=== PATIENT | female | born 1955 | race Caucasian/White ===

== ENCOUNTER 2021-01-12 06:03 | Day surgery (SDC) | payer MEDICARE ==
[~2021-01-12 06:03] MED LIST: Acetaminophen 325 MG Tab PO SCH; Lactated Ringers 1,000 ML IV SCH; Lidocaine 1% 4 ML ONE; Lidocaine 1%/Sod Bicarbonate in NS 8.4% 1 ML Syringe IDERM PRN; Midazolam 1 MG/ML 2 ML SDV ONE; Pregabalin 25 MG Cap PO SCH; Propofol 200 MG/20 ML SDV ONE; Sodium Chloride 0.9% 10 ML Syringe FLUSH PRN; fentaNYL 100 MCG/2 ML SDV ONE; oxyCODONE ER 10 MG TAB.ER PO SCH
[2021-01-12] MEDS ORDERED: ceFAZolin 1 GM Vial ONE (06:11)
[2021-01-12] MEDS ORDERED: Lactated Ringers 1,000 ML ONE (06:13)
--- NOTE | 2021-01-12 06:25 | PCM.PREANE ---
Preanesthetic Assessment - Anesthesia/Transfusion/Family Hx Anesthesia History: Prior Anesthesia Without Reaction (pt has had hoarseness from repeated intubation after open heart surgery) Family History of Anesthesia Reaction: No Transfusion History: Prior Transfusion Without Reaction - Review of Systems General: No Symptoms Pulmonary: Cough Cardiovascular: No Symptoms Gastrointestinal: Nausea (pt states due to sinus drainage) Neurological: No Symptoms Other: Reports: None - Physical Assessment NPO Status Date: 01/11/21 NPO Status Time: 21:30 ASA Class: 3 Mental Status: Alert & Oriented x3 Airway Class: Mallampati = 3 Dentition: Reports: Normal Dentition Thyro-Mental Finger Breadths: 3 Mouth Opening Finger Breadths: 3 ROM/Head Extension: Full Lungs: Clear to Auscultation, Normal Respiratory Effort Cardiovascular: Regular Rate, Regular Rhythm - Allergies Allergies/Adverse Reactions: Allergies Allergy/AdvReac Type Severity Reaction Status Date / Time heparin Allergy Cannot Verified 01/09/21 07:09 Remember Penicillins Allergy Cannot Verified 01/09/21 07:09 Remember Sulfa (Sulfonamide Allergy Cannot Verified 01/09/21 07:09 Antibiotics) Remember - Anesthesia Plan Beta Sharon: Metoprolol Med Last Dose Date: 01/12/21 Med Last Dose Time: 04:30 - Acknowledgements Anesthesia Type Planned: Spinal, Regional Block Pt an Appropriate Candidate for the Planned Anesthesia: Yes Alternatives and Risks of Anesthesia Discussed w Pt/Guardian: Yes Pt/Guardian Understands and Agrees with Anesthesia Plan: Yes PreAnesthesia Questionnaire HEENT History: Reports: Impaired Vision, Other (See Below) Other HEENT History: post nasal drip Cardiovascular History: Reports: Afib, Cardiomyopathy, Other (See Below) Other Cardiovascular History: left bundle branch block, mitral regurgitation Respiratory History: Reports: Other (See Below) Other Respiratory History: dypsnea on exertion, history of multiple intubations that resulted chronic cough and hoarseness Gastrointestinal History: Reports: None Genitourinary History: Reports: UTI, Recurrent, Other (See Below) (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, all due to allery to heparin and side effects) Other Genitourinary History: hematuria 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 Musculoskeletal History: Reports: Other (See Below) Other Musculoskeletal History: right arm pain, left hip pain, right carpal tunnel syndrome, cervical muscle pain, left patella frature Neurological History: Reports: Other (See Below) Other Neuro History: right arm paresthesia Psychiatric History: Reports: Depression, Other (See Below) Other Psychiatric History: sleep disturbances Endocrine/Metabolic History: Reports: None Hematologic History: Reports: None Immunologic History: Reports: None Oncologic (Cancer) History: Reports: None Dermatologic History: Reports: Cellulitis - Past Surgical History Head Surgeries/Procedures: Reports: None HEENT Surgical History: Reports: None Cardiovascular Surgical History: Reports: Other (See Below) Other Cardiovascular Surgeries/Procedures: myocardial myectomy Respiratory Surgical History: Reports: None GI Surgical History: Reports: None Female Surgical History: Reports: Hysterectomy Male Surgical History: Reports: None Endocrine Surgical History: Reports: None Neurological Surgical History: Reports: None Musculoskeletal Surgical History: Reports: Ganglion Cyst, Joint Replacement, Other (See Below) Other Musculoskeletal Surgeries/Procedures:: left total knee replacement, left knee replacement, right carpal tunnel release Oncologic Surgical History: Reports: None Dermatological Surgical History: Reports: None - SUBSTANCE USE Tobacco Use Status *Q: Never Tobacco User Days Per Week of Alcohol Use: 2 Number of Drinks Per Day: 2 Total Drinks Per Week: 4 Recreational Drug Use History: No - HOME MEDS Home Medications: Home Meds Apixaban [Eliquis] 5 mg PO BID 01/09/21 [History] Cholecalciferol (Vitamin D3) [Vitamin D3] 5,000 unit PO DAILY 01/09/21 [History] Escitalopram Oxalate [Lexapro] 20 mg PO DAILY 01/09/21 [History] Furosemide [Lasix] 20 mg PO DAILY 01/09/21 [History] Metoprolol Tartrate 25 mg PO BID 01/09/21 [History] Omeprazole Magnesium [Prilosec Otc] 20 mg PO DAILY 01/09/21 [History] - CURRENT (IN HOUSE) MEDS Current Meds: Current Medications Acetaminophen (Acetaminophen 325 Mg Tab) 975 mg PO ONETIME MARIA ESTHER Stop: 01/12/21 16:00 Morphine Sulfate 8 mg/Epinephrine HCl 0.3 mg/Cefuroxime Sodium 750 mg/Ketorolac Tromethamine 30 mg/Sodium Chloride 7.9 ml 0 mg .XX ASDIRECTED PRN PRN Reason: Pain Stop: 01/12/21 18:00 Lactated Ringer's (Ringers, Lactated) 1,000 mls @ 125 mls/hr IV ASDIRECTED MARIA ESTHER Stop: 01/12/21 23:00 Lidocaine/Sodium Bicarbonate (Lidocaine 1%/Sod Bicarbonate In Ns 8.4% 1 Ml Syringe) 0.25 ml IDERM ONETIME PRN PRN Reason: Prior to IV Start Stop: 01/12/21 18:00 Oxycodone HCl (Oxycodone Er 10 Mg Tab.Er) 10 mg PO ONETIME MARIA ESTHER Stop: 01/12/21 18:00 Pregabalin (Pregabalin 25 Mg Cap) 50 mg PO ONETIME MARIA ESTHER Stop: 01/12/21 16:00 Sodium Chloride (Sodium Chloride 0.9% 10 Ml Syringe) 10 ml FLUSH ASDIRECTED PRN PRN Reason: Keep Vein Open Stop: 01/12/21 18:00 Discontinued Medications Cefazolin Sodium (Cefazolin 1 Gm Vial) Confirm Administered Dose 2 gm .ROUTE .STK-MED ONE Stop: 01/12/21 06:12 Fentanyl (Fentanyl 100 Mcg/2 Ml Sdv) Confirm Administered Dose 100 mcg .ROUTE .STK-MED ONE Stop: 01/12/21 06:04 Lidocaine HCl (Xylocaine-Mpf 1%) Confirm Administered Dose 4 mls @ as directed .ROUTE .STK-MED ONE Stop: 01/12/21 06:04 Lactated Ringer's (Ringers, Lactated) Confirm Administered Dose 1,000 mls @ as directed .ROUTE .STK-MED ONE Stop: 01/12/21 06:14 Midazolam HCl (Midazolam 1 Mg/Ml 2 Ml Sdv) Confirm Administered Dose 2 mg .ROUTE .STK-MED ONE Stop: 01/12/21 06:04 Propofol (Propofol 200 Mg/20 Ml Sdv) Confirm Administered Dose 200 mg .ROUTE .STK-MED ONE Stop: 01/12/21 06:04
[2021-01-12] MEDS ORDERED: ePHEDrine 50 MG/ML SDV ONE (07:15)
[2021-01-12] MEDS ORDERED: Ondansetron 4 MG/2 ML SDV ONE (07:28)
[2021-01-12] MEDS ORDERED: Dexmedetomidine 200 MCG/2 ML SDV ONE (07:35)
[2021-01-12] MEDS ORDERED: Ropivacaine 0.5% 5 MG/ML 30 ML SDV ONE (07:35)
[2021-01-12] MEDS ORDERED: Dexamethasone 4 MG/ML 5 ML MDV ONE (07:38)
[2021-01-12] MEDS ORDERED: Ondansetron 4 MG/2 ML SDV IVPUSH PRN (07:38)
[2021-01-12] MEDS ORDERED: fentaNYL 100 MCG/2 ML SDV IVPUSH PRN (07:38)
[2021-01-12] MEDS ORDERED: Propofol 200 MG/20 ML SDV ONE (07:45)
[2021-01-12] MEDS: Morphine 8 MG, EPINEPHrine 0.3 MG, Cefuroxime 750 MG, Ketorolac 30 MG, Sodium Chloride ... PRN ×10 (07:46→08:13)
[2021-01-12] MEDS: Vancomycin 1 GM SDV ONE ×2 (07:46→08:20)
--- NOTE | 2021-01-12 08:47 | PCM.POSTAN ---
POST ANESTHESIA ASSESSMENT - MENTAL STATUS Mental Status: Alert, Oriented - VITAL SIGNS Vital Signs: Last Vital Signs Temp 36.1 C 01/12/21 06:39 Pulse 66 01/12/21 06:00 Resp 18 01/12/21 06:00 BP 155/82 H 01/12/21 06:00 Pulse Ox 97 01/12/21 06:00 - RESPIRATORY Respiratory Status: Respiratory Rate WNL, Airway Patent, O2 Saturation Stable - CARDIOVASCULAR CV Status: Pulse Rate WNL, Blood Pressure Stable - GASTROINTESTINAL GI Status: No Symptoms - PAIN Pain Score: 0 - POST OP HYDRATION Hydration Status: Adequate & Stable
--- NOTE | 2021-01-12 09:14 | PCM.PRNOTE ---
- Free Text/Narrative Note: Postoperative regional pain control requested by surgeon. Pre-op Dx: Rt knee osteoarthritis. Post-op Rx: Total Rt knee arthroplasty. Procedure: Rt Adductor canal block with U/S guidance Requesting physician: Dr. Yariel Chaudhry Risks and benefits discussed with the patient preoperatively including infection, bleeding, incomplete or failed block, possible nerve damage, local anesthetic toxicity. Permit signed. Patient after spinal anesthesia post surgery in PACU, stable , alert and awake. Time out performed. Right mid-thigh was prepped with Chloraprep x 1 and allowed to dry. Under aseptic technique, the right femoral artery and sartorius muscle were identified under ultrasound prior to needle insertion. 4" Stimuplex needle #22 G was inserted under US guidance. Under direct visualization of needle tip the injection of 0.5% Ropivacaine with 1:200k epinephrine, with 6 mg of Dexamethasone and 40 mcg of Dexmedetomidine, total of 30 mls in divided doses, maintaining negative aspiration was completed without problems. No local anesthetic toxicity was noted. Patient is awake, stable and tolerated the procedure well. Time: 08:49 - 09:02 Picture not available due to machine malfunction.
--- NOTE | 2021-01-12 09:59 | PCM48HPAN ---
Post Anesthesia Note - EVALUATION WITHIN 48HRS OF ANESTHETIC Vital Signs in Normal Range: Yes Patient Participated in Evaluation: Yes Respiratory Function Stable: Yes Airway Patent: Yes Cardiovascular Function Stable: Yes Hydration Status Stable: Yes Pain Control Satisfactory: Yes Nausea and Vomiting Control Satisfactory: Yes Mental Status Recovered: Yes Vital Signs: Last Vital Signs Temp 36.6 C 01/12/21 09:42 Pulse 67 01/12/21 09:42 Resp 18 01/12/21 09:42 BP 116/72 01/12/21 09:42 Pulse Ox 94 L 01/12/21 09:40
--- NOTE | 2021-01-12 12:43 | CR ---
Right knee: AP and crosstable lateral views of the right knee were obtained. Comparison: Prior CT right knee study of 12/26/20. Knee prosthesis is noted. Components are aligned. Soft tissue air is seen. No acute underlying bony abnormality is appreciated. Impression: 1. Satisfactory postop radiographic appearance of recently placed right knee prosthesis. Diagnostic code #2
--- NOTE | 2021-01-27 07:33 | PCM.OPNOTE ---
- General Post-Op/Procedure Note Date of Surgery/Procedure: 01/12/21 Operative Procedure(s): right total knee arthroplasty with jordan [employer] robot[employer] Pre Op Diagnosis: right knee osteoarthrosis Post-Op Diagnosis: Same Anesthesia Technique: Local, MAC, Spinal Primary Surgeon: Yariel Greenfield Anesthesia Provider: Dimple Norwood Claim Inspector: Karla Hilario Claim Inspector: Denisa Flores EBL in mLs: 5 Complications: None Condition: Good Free Text/Narrative:: 3 femur 2 tibia 9mm 29x9
--- NOTE | 2021-01-27 08:54 | OR ---
DATE OF OPERATION: 01/12/2021 SURGEON: Yariel Greenfield MD OPERATION PERFORMED: Right total knee arthroplasty with [employer] robot[employer]. PREOPERATIVE DIAGNOSIS: Right knee osteoarthrosis. POSTOPERATIVE DIAGNOSIS: Right knee osteoarthrosis. ANESTHESIA: Local MAC with spinal. ANESTHESIA PROVIDER: Dimple Norwood CRNA [id number] JAVA DEVELOPER: Karla Hilario PA-C; and Denisa Flores LPN. ESTIMATED BLOOD LOSS: 5 mL. COMPLICATIONS: None. CONDITION: Stable. IMPLANTS: 1. Ted size 3 press-fit CR femur. 2. Ted size 2 press-fit tibial baseplate. 3. Ted size 2 9 mm CS polyethylene insert. 4. Hixton size 29 x 9 mm cemented asymmetric patella. DESCRIPTION OF PROCEDURE: The patient was identified in the preop holding area. Proper site was marked and identified by the surgeon. The patient was taken back to the operative theater, where after adequate anesthesia, the patient's right lower extremity had a nonsterile tourniquet applied and was then sterilely prepped and draped in the usual sterile fashion. OR time-out was performed. The patient received 2 g IV Ancef after a test dose. Right lower extremity was then exsanguinated. Tourniquet was insufflated to 250 mmHg. Standard anterior incision was made. Medial parapatellar arthrotomy was created. Deep fibers of the MCL were raised and the anterior fat pad was resected. Patella at this time was measured, it only measured at 20. Secondary to this, we decided to cement the patella secondary to its thin nature to begin with. Drill holes were then drilled after resection for a 29 x 9 mm patella. Attention was turned to femur. Two 4.0 Schanz pins were then placed intraincisionally in the femur and 2 more were placed extra-incisionally on the tibia for the [employer] robotic arrays. Checkpoints were placed on the tibia and the femur. Hip center rotation was obtained. Medial and lateral malleoli were marked with a green probe as well as both the checkpoints. 40 points were then obtained off both the femur and the tibia for the Ted [employer] robotic plan. The patient then had her plan done for 19 mm gaps which were symmetrical. Hixton [employer] robotic arm was brought in. With a straight saw blade, tibial cut was made, anterior femoral cut was made, anterior chamfer cut, and posterior femoral cut was completed. Saw blade was then switched. Distal femoral cut as well as posterior chamfer cut was completed. All the cuts were found to be adequate. Bony fragments were removed. Medial and lateral meniscus were resected as well as any posterior osteophytes. Size 2 trial tibia was placed. Size 3 trial femur was placed and a 9 mm trial CS polyethylene insert. The patient had full knee flexion and extension. No signs of liftoff and no varus-valgus instability. Cement was mixed on the back table. The patella was then irrigated. While this cement was being mixed, the size 2 tibial baseplate was impacted into place after it was stamped and drilled in proper rotation. Size 3 femur was impacted into place and 9 mm CS polyethylene insert was impacted into place. The 29 x 9 mm patella was then cemented into place. 1 L pulse lavage irrigation with Ancef was irrigated through the knee along with 400 mL of IrriSept irrigation. Topical tranexamic acid and vancomycin powder were placed intraincisionally. Periarticular injection was completed. #2 barbed suture was used for closure of the medial parapatellar arthrotomy. 2-0 Vicryl as well as Stratafix was used subcutaneously. Please note, the Schanz pins as well as checkpoints were removed before closure and Prineo was used for skin closure. The patient was placed in a sterile soft dressing and sent to the PACU in stable condition. LAURIE /[id number]
== END 2021-01-12 13:08 | disposition home or self-care (01) ==
LOC: JD.SDS 06:03
PROVIDERS: ATTEND Orthopaedic Surgery
DX: M17.11 Unilateral primary osteoarthritis, right knee (principal); M25.761 Osteophyte, right knee; Z88.0 Allergy status to penicillin; Z88.2 Allergy status to sulfonamides; Z88.8 Allergy status to other drugs, medicaments and biological substances; Z79.899 Other long term (current) drug therapy; G89.18 Other acute postprocedural pain
CPT/HCPCS: 27447; 73560; 97110; 97116; 97161; A9270; C1713; C1776; J0171; J0690; J0697; J1100; J1885; J2250; J2270; J2405; J2704; J2795; J3010; J3370; J7120; 01402; 64450; 76942